=== PATIENT | male | born 1985 | race American Indian/Alaskan Native ===

== ENCOUNTER 2020-07-13 08:43 | Emergency (ER) | payer MEDICAID ==
--- NOTE | 2020-07-13 09:02 | EDM.PDOC ---
ED HPI GENERAL MEDICAL PROBLEM - General Chief Complaint: Upper Extremity Injury/Pain Stated Complaint: SWOLLEN LEFT HAND Time Seen by Provider: 07/13/20 08:59 Source of Information: Reports: Patient, RN, RN Notes Reviewed History Limitations: Reports: No Limitations - History of Present Illness INITIAL COMMENTS - FREE TEXT/NARRATIVE: Pt presents to ER with c/o left hand swollen, hurts at the knuckle x3 days. Denies any injury. Pt rates the pain 3/10. Nothing alleviates the pain. Palpation and movement aggravates the pain. He thinks maybe overuse from typing or something like that may have caused it. Duration: Constant, Getting Worse Location: Reports: Upper Extremity, Left Quality: Reports: Ache Severity: Moderate Improves with: Reports: None Worsens with: Reports: Movement Associated Symptoms: Reports: No Other Symptoms Left Hand Pain Score (Numeric/FACES): 3 - Related Data Allergies Allergy/AdvReac Type Severity Reaction Status Date / Time No Known Allergies Allergy Verified 07/13/20 08:57 Home Meds: Home Meds . [No Known Home Meds] 07/13/20 [History] Social & Family History - Family History Family Medical History: Noncontributory - Living Situation & Occupation Living situation: Reports: with Family Review of Systems - Review of Systems Review Of Systems: Comprehensive ROS is negative, except as noted in HPI. ED EXAM, GENERAL - Physical Exam Exam: See Below Exam Limited By: No Limitations General Appearance: Alert, WD/WN, No Apparent Distress Throat/Mouth: Normal Voice, No Airway Compromise Head: Atraumatic, Normocephalic Neck: Normal Inspection Respiratory/Chest: No Respiratory Distress Cardiovascular: Normal Peripheral Pulses Extremities: Normal Range of Motion, Normal Capillary Refill, Other (Dorsum of left hand has soft tissue swelling without significant tenderness, no redness, bruising, or deformity, skin is intact.). No: Joint Swelling, Increased Warmth, Redness Neurological: Alert, Oriented, No Motor/Sensory Deficits Psychiatric: Normal Affect, Normal Mood Skin Exam: Warm, Dry Course - Vital Signs Last Recorded V/S: Last Vital Signs Temp 98.1 F 07/13/20 08:53 Pulse 59 L 07/13/20 08:53 Resp 16 07/13/20 08:53 BP 140/92 H 07/13/20 09:02 Pulse Ox 98 07/13/20 08:53 - Orders/Labs/Meds Orders: Active Orders 24 hr Category Date Time Status Tevin Bandage [RC] ONETIME Care 07/13/20 09:21 Ordered Ibuprofen [Motrin] Med 07/13/20 09:21 Once 800 mg PO ONETIME ONE - Radiology Interpretation Free Text/Narrative:: XR Left Hand: no acute findings, no fracture, see Rad. report. Departure - Departure Time of Disposition: 09:24 Disposition: Home, Self-Care 01 Condition: Good Clinical Impression: Tendinitis of extensor tendon of left hand - Discharge Information *PRESCRIPTION DRUG MONITORING PROGRAM REVIEWED*: Not Applicable *COPY OF PRESCRIPTION DRUG MONITORING REPORT IN PATIENT MILA: Not Applicable Instructions: Tendinitis, [id number] Forms: ED Department Discharge, ED Return to Work/School Form Additional Instructions: Rx: Naprosyn 500mg Wear TEVIN wrap to left hand. Follow up in clinic if not improving in 1 week. Sepsis Event Note (ED) - Evaluation Sepsis Screening Result: No Definite Risk - Focused Exam Vital Signs: Vital Signs Temp Pulse Resp BP Pulse Ox 07/13/20 09:02 140/92 H 07/13/20 08:53 98.1 F 59 L 16 146/104 H 98 - My Orders Last 24 Hours: My Active Orders 07/13/20 09:21 Tevin Bandage [RC] ONETIME Ibuprofen [Motrin] 800 mg PO ONETIME ONE - Assessment/Plan Last 24 Hours: My Active Orders 07/13/20 09:21 Tevin Bandage [RC] ONETIME Ibuprofen [Motrin] 800 mg PO ONETIME ONE
[2020-07-13] MEDS ORDERED: Ibuprofen 800 MG Tab PO ONE (09:21)
--- NOTE | 2020-07-13 09:21 | CR ---
PROCEDURE INFORMATION: Exam: XR Left Hand Exam date and time: 07/13/2020 9:07 AM Age: 34 years old Clinical indication: Other: Pain swelling, no known injury TECHNIQUE: Imaging protocol: XR Left hand. Views: 3 or more views. COMPARISON: No relevant prior exams. FINDINGS: Bones/joints: Normal. No fractures or dislocations. No periostitis or cortical erosion. Soft tissues: There is swelling of the dorsal soft tissues. IMPRESSION: Nonspecific soft tissue swelling. No underlying bony abnormality.
== END 2020-07-13 09:35 | disposition home or self-care (01) ==
LOC: DL.ED 08:43
DX: M77.9 Enthesopathy, unspecified (principal)
CPT/HCPCS: 73130; 99283; A9270